=== PATIENT | female | born 1995 | race African-American/Black ===

== ENCOUNTER 2019-12-15 11:18 | Emergency (ER) | payer OTHER ==
[~2019-12-15] VITALS: Ht 170.2 cm; Wt 95.3 kg
[2019-12-15] MEDS ORDERED: NORFLEX100 MG PO (12:39)
[2019-12-15] MEDS ORDERED: NAPROSYN500 MG PO (12:39)
[2019-12-15 12:54] VITALS: BP 107/86
== END 2019-12-15 12:55 | disposition home or self-care (01) ==
LOC: ER 11:18
DX: S16.1XXA Strain of muscle, fascia and tendon at neck level, initial encounter (principal); S39.012A Strain of muscle, fascia and tendon of lower back, initial encounter; R51 Headache; V49.9XXA Car occupant (driver) (passenger) injured in unspecified traffic accident, initial encounter; Y93.89 Activity, other specified; Y92.89 Other specified places as the place of occurrence of the external cause; Y99.8 Other external cause status